=== PATIENT | female | born 1995 | race Caucasian/White ===

== ENCOUNTER 2020-04-16 15:37 | Emergency (ER) | payer BC ==
[2020-04-16] MEDS ORDERED: Promethazine HCl 25 MG/ML VIAL ONE (16:10)
[2020-04-16] MEDS ORDERED: Sodium Chloride 0.9% 1,000 ML ONE ×3 (16:10→20:31)
[2020-04-16] MEDS ORDERED: Pantoprazole 40 MG VIAL ONE (16:10)
[2020-04-16] MEDS ORDERED: Metoclopramide HCl 10 MG/2 ML VIAL ONE ×2 (16:10→17:36)
[2020-04-16 17:15] LABS: #Basophils 0.1 thou/uL (0.0-0.2); #Lymphocytes 1.5 thou/uL (1.20-3.40); #Neutrophils 14.5 thou/uL (1.40-6.50); %Basophils 0.5 % (0.0-1.0); %Eosinophils 0.1 % (0.0-10.0); %Lymphocytes 8.7 % (21.0-51.0); %Monocytes 5.8 % (0.0-10.0); Hemoglobin 12.3 g/dL (12.0-16.0); Mean Corpuscular HGB CONC 32.3 g/dL (32.0-36.0); Mean Corpuscular Hemoglobin 28.8 pg (27.0-31.0); Mean Corpuscular Volume 89.4 fL (78.0-98.0); Mean Platelet Volume 6.7 fL (7.4-10.4); Platelet Count 270 thou/uL (130-400); RBC Distribution Width 12.1 % (11.5-14.5); Red Blood Cell (RBC) Count 4.26 mill/uL (4.20-5.40); White Blood Cell (WBC) Count 17.1 thou/uL (4.8-10.8)
[2020-04-16 17:34] LABS: ALT (SGPT) 15 U/L (8-55); AST (SGOT) 15 U/L (5-34); Albumin 3.8 g/dL (3.5-5.0); Alkaline Phosphatase 64 U/L (40-110); Anion Gap 18 mmol/L (10-20); BUN (Urea Nitrogen) 11 mg/dL (7.0-18.7); Bilirubin, Total 0.5 mg/dL (0.2-1.2); Calc. Creatinine Clearance 0 mL/min (70-130); Carbon Dioxide 21 mmol/L (22-29); Chloride 106 mmol/L (98-107); Estimated GFR-MDRD Greater than 90; Globulin 2.7 g/dL (2.4-3.5); Glucose 147 mg/dL (70-105); Potassium 3.5 mmol/L (3.5-5.1); Protein, Total 6.5 g/dL (6.0-8.3); Sodium 141 mmol/L (136-145)
[2020-04-16 17:35] LABS: CRP (Inflammatory) 0.75 mg/dL (= or < 0.5)
[2020-04-16 20:17] LABS: Bilirubin Negative (Negative); Blood, Urine Trace (Negative); Clarity Clear (Clear); Glucose, Urine (Dipstick) Negative (Negative); Ketone, Urine > or equal to 80 mg/dL (Negative); Leukocyte Negative (Negative); Nitrite Negative (Negative); Protein, Urine (Dipstick) Negative (Neg-Trace); Specific Gravity, Urine 1.025 (1.005-1.030); Urobilinogen 0.2 mg/dL (Less than 2)
[2020-04-16 20:23] LABS: Bacteria/HPF Rare-Few HPF (None Seen); WBC/HPF 0-3 HPF (0-3)
[2020-04-16 20:24] LABS: Mucous/LPF 2+ LPF (<2+); Pregnancy Test - Urine (BHCG) Negative (Negative); Pregu Control Background? CLEAR/WHITE (CLR/WHITE); Pregu Control Bar Appear? YES (CONTROL BAR); Specific Gravity 1.025 (1.002-1.036)
[2020-04-16] MEDS ORDERED: Ondansetron PF 4 MG/2 ML Vial ONE (20:31)
--- NOTE | 2020-04-16 21:04 | RAD ---
ACUTE ABDOMINAL SERIES: Date: 04-16-2020 PROVIDED CLINICAL HISTORY: Nausea, vomiting FINDINGS: Cardiac and mediastinal silhouette is within normal limits. Lungs appear clear. No pleural or pneumot horax apparent. Supine and upright abdominal radiographs demonstrate a nonspecific bowel gas pattern. Single loop of ectatic small bowel present within the left upper quadrant. There is an overall paucity of abdominal bowel gas. No radiographically apparent urinary tract calculi. The osseous structures demonstrate no acute finding. No evidence for pneumoperitoneum. IMPRESSION: Overall nonspecific bowel gas pattern. POS: [facility]ORGE
== END 2020-04-16 23:33 | disposition short-term general hospital (02) ==
LOC: MADERS 15:37
DX: R11.2 Nausea with vomiting, unspecified (principal)
CPT/HCPCS: 36415; 74022; 80053; 81003; 81015; 81025; 82150; 82550; 83690; 85025; 86140; 96361; 96365; 96375; 96376; C9113; J2405; J2550; J2765; J7050